=== PATIENT | male | born 1970 | race Caucasian/White ===

== ENCOUNTER 2016-12-09 21:12 | Emergency (ER) | payer OTHER ==
[~2016-12-09 21:12] MED LIST: ACETAMINOPHEN; AMOXIL500 M1 PO; COMBIVENT RESPIM4 GM INH; DILANTIN PO; FLEXERIL10 M1 PO; LEVAQUIN; LORTAB ELIXIR15 ML DOB; MEDROL DOSEPAK4 MG PO; MORGIDOX100 MG PO; NICOTINE TRANSD14 MG EXT; VOLTAREN50 MG PO; ZITHROMAX500 MG PO
[2016-12-10 02:02] LABS: BASOPHIL# 0.1 X10e3 (0-0.3); BASOPHIL% 1.5 % (0-2.5); EOSINOPHIL# 0.2 X10e3 (0-0.7); EOSINOPHIL% 3.1 % (0.0-7.0); HEMOGLOBIN 15.8 gm/dL (13.0-16.0); LYMPHOCYTE# 2.3 X10e3 (1.0-3.5); LYMPHOCYTE% 32.1 % (17.0-45.0); MEAN CELL VOLUME 94.8 FL (83-96); MEAN CORPUSCULAR HEMOGLOBIN 32.5 PG (28-34); MEAN CORPUSCULAR HGB CONC 34.3 g/dL (30-36); MEAN PLATELET VOLUME 6.8 FL (6.5-11.5); MONOCYTE# 0.4 X10e3 (0-1.0); MONOCYTE% 5.4 % (3.0-12.0); NEUTROPHIL# 4.2 X10e3 (1.5-7.1); NEUTROPHIL% 57.9 % (40-75); PLATELET COUNT 357 X10e3 (140-420); RED BLOOD COUNT 4.86 X10e (3.90-5.60); RED CELL DISTRIBUTION WIDTH 13.9 % (11.0-15.5); WHITE BLOOD COUNT 7.2 X10e3 (4.0-10.5)
[2016-12-10 02:08] LABS: DIFF IND NO
[2016-12-10 02:18] LABS: INR 0.9; PARTIAL THROMBOPLASTIN TIME 27.3 SECONDS (23.5-31.3); PROTHROMBIN TIME (PATIENT) 9.6 SECONDS (9.6-11.5)
[2016-12-10 02:51] LABS: ALBUMIN SERUM 5.2 g/dL (3.5-5.0); BILIRUBIN, DIRECT 0.1 mg/dL (0.0-0.2); BILIRUBIN,INDIRECT 0.5 mg/dL (0.0-0.9); BILIRUBIN,TOTAL 0.6 mg/dL (0.2-2.0); BUN/CREATININE RATIO 15.71; CALCIUM SERUM 9.1 mg/dL (8.4-10.2); CREATININE SERUM 0.7 mg/dL (0.6-1.4); GLOM FILT RATE Estimated 114.8 mL/min (>60); POTASSIUM 4.1 mmol/L (3.5-5.1); PROTEIN TOTAL SERUM 8.5 g/dL (6.0-8.3)
== END 2016-12-10 04:55 | disposition home or self-care (01) ==
LOC: CED 21:12
PROVIDERS: Emergency Medicine
DX: I99.8 Other disorder of circulatory system (principal); M79.671 Pain in right foot; J44.9 Chronic obstructive pulmonary disease, unspecified; F10.129 Alcohol abuse with intoxication, unspecified; G40.909 Epilepsy, unspecified, not intractable, without status epilepticus; Z79.899 Other long term (current) drug therapy; F17.200 Nicotine dependence, unspecified, uncomplicated
CPT/HCPCS: 36415; 80048; 80076; 85025; 85610; 85730; 96360; 99284; G0480

== ENCOUNTER 2017-01-02 10:40 | Emergency (ER) | payer OTHER ==
--- NOTE | ~2017-01-02 | US85 ---
[facility] A Service of [facility] & [facility] RADIOLOGY TEXT RESULTS PATIENT: SUSY REES LOCATION: [facility] : 74 UNIT #: [id number] AGE: [address]: Giovanni Ibarra MD SEX: M ORDER DR: [id number] [facility] [address] [place], [place] [address] [id number] E MR#: [id number] Acc #: [id number] NAME: SUSY REES : 1970 SEX: M STUDY DATE/TIME: 01/02/2017 12:36 UNIT: [facility] ROOM: STUDY DESCRIPTION: LE [employer] Attending Physician: Giovanni Ibarra M.D. Ordering Physician: Giovanni Ibarra M.D. Primary Care Physician: Alen Moore MEDICAL IMAGING REPORT This report is preliminary unless electronic signature is present EXAM Right extremity venous ultrasound 01/02/2017 HISTORY Pain for 5 days. TECHNIQUE Venous ultrasound examination of the right lower extremity was performed using grayscale, spectral Doppler and color flow Doppler imaging. FINDINGS The examination is negative. There is no evidence of right lower extremity deep venous thrombus from the groin to the lower calf. Visualized greater saphenous vein is also patent. IMPRESSION Negative examination. No evidence of right lower extremity deep venous thrombosis. Dictated by... Peterson Lancaster M.D. THIS IS AN ELECTRONICALLY VERIFIED REPORT Peterson Lancaster M.D. at 01/03/2017 5:40 PM MATTEOK/kota TD: 01/02/2017 19:34 JOB #: [id number] MEDICAL IMAGING REPORT Page 1 of 1 COPY
--- NOTE | ~2017-01-02 | US83 ---
[facility] A Service of [facility] & [facility] RADIOLOGY TEXT RESULTS PATIENT: SUSY REES LOCATION: [facility] : 74 UNIT #: [id number] AGE: [address]: Giovanni Ibarra MD SEX: M ORDER DR: [id number] [facility] [address] [place], [place] [address] [id number] E MR#: [id number] Acc #: [id number] NAME: SUSY REES : 1970 SEX: M STUDY DATE/TIME: 01/02/2017 12:20 UNIT: [facility] ROOM: STUDY DESCRIPTION: US LE [employer] Attending Physician: Giovanni Ibarra M.D. Ordering Physician: Giovanni Ibarra M.D. Primary Care Physician: Alen Moore MEDICAL IMAGING REPORT This report is preliminary unless electronic signature is present EXAM Right lower extremity arterial Doppler INDICATION Numbness, pain and tingling in the calf for 5 days. TECHNIQUE Hernandez-scale, color Doppler and spectral Doppler waveform analysis was performed through the right lower extremity. FINDINGS Velocities overall throughout the right lower extremity appear elevated. This is of uncertain clinical significance. This is with the exception of the peroneal artery which has a velocity of 11 cm/sec and shows severe amplitude reduction and elongation of the waveform. Remainder of the waveforms throughout the right lower extremity appear to be monophasic. This would be suggestive of aoeb-uw-tvkyzsyx disease. IMPRESSION Velocities appear elevated throughout much of the right lower extremity with the exception of the patient's peroneal artery. Clinical significance is uncertain. It may be artifactual and related to technique. 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 Overall, waveforms throughout the right lower extremity are essentially monophasic which would suggest dxbh-gz-xpijjpiq disease throughout the right lower extremity. Correlation with ankle-brachial indices is suggested. Further evaluation with CT angiography of the abdomen and pelvis with bilateral lower extremity runoff would also allow for better evaluation. STAT * RESULT [facility] A Service of [facility] RADIOLOGY TEXT RESULTS PATIENT: SUSY REES LOCATION: [facility] : 74 UNIT #: [id number] AGE: [address]: Giovanni Ibarra MD SEX: M ORDER DR: Dictated by... Sejal Hairston M.D. THIS IS AN ELECTRONICALLY VERIFIED REPORT Sejal Hairston M.D. at 01/02/2017 3:52 PM HONEY/xuan TD: 01/02/2017 13:49 JOB #: [id number] MEDICAL IMAGING REPORT Page 1 of 1 COPY
--- NOTE | ~2017-01-02 | CR127 ---
[facility] A Service of [facility] RADIOLOGY TEXT RESULTS PATIENT: SUSY REES LOCATION: [facility] : 74 UNIT #: [id number] AGE: [address]: Giovanni Ibarra MD SEX: M ORDER DR: [id number] [place] [id number] [facility] [place], [place] [address] [id number] E MR#: [id number] Acc #: [id number] NAME: SUSY REES : 1970 SEX: M STUDY DATE/TIME: 01/02/2017 11:25 UNIT: [facility] ROOM: STUDY DESCRIPTION: CR Foot Complete Min 3 View Rt Attending Physician: Giovanni Ibarra M.D. Ordering Physician: Giovanni Ibarra M.D. Primary Care Physician: Alen Moore MEDICAL IMAGING REPORT This report is preliminary unless electronic signature is present EXAM Right foot 01/02/2017 HISTORY 46-year-old male with right foot pain and swelling for 5 days. COMPARISON Right foot 12/20/2016, 12/05/2016. FINDINGS 3 views of the right foot again demonstrates a minimal to nondisplaced articular fracture involving the medial head of the first proximal phalanx. This is unchanged from the patient's prior examinations dating from 12/05/2016. No new fracture or dislocation identified. There is a suspected soft tissue laceration or ulceration along the distal medial aspect of the fourth toe. This is also unchanged from prior exam. No significant ankle effusion. IMPRESSION 1. No significant change in oblique articular fracture involving the medial head of the first proximal phalanx since 12/05/2016. No new fracture or dislocation identified. 2. Probable soft tissue laceration or ulceration along the distal medial aspect of the fourth toe, unchanged from prior exam. Dictated by... Chu Gilbert M.D. THIS IS AN ELECTRONICALLY VERIFIED REPORT Chu Gilbert M.D. at 01/02/2017 6:29 PM JKB/pcl [facility] A Service of [facility] RADIOLOGY TEXT RESULTS PATIENT: SUSY REES LOCATION: [facility] : 74 UNIT #: [id number] AGE: [address]: Giovanni Ibarra MD SEX: M ORDER DR: TD: 01/02/2017 17:41 JOB #: [id number] MEDICAL IMAGING REPORT Page 1 of 1 COPY
[2017-01-02 11:51] LABS: BASOPHIL# 0.1 X10e3 (0-0.3); BASOPHIL% 1.6 % (0-2.5); EOSINOPHIL# 0.3 X10e3 (0-0.7); EOSINOPHIL% 4.9 % (0.0-7.0); HEMATOCRIT 43.2 % (38.0-50.0); HEMOGLOBIN 14.4 gm/dL (13.0-16.0); LYMPHOCYTE# 1.5 X10e3 (1.0-3.5); LYMPHOCYTE% 27.6 % (17.0-45.0); MEAN CORPUSCULAR HEMOGLOBIN 31.7 PG (28-34); MEAN CORPUSCULAR HGB CONC 33.4 g/dL (30-36); MEAN PLATELET VOLUME 7.3 FL (6.5-11.5); MONOCYTE# 0.4 X10e3 (0-1.0); MONOCYTE% 6.6 % (3.0-12.0); NEUTROPHIL# 3.2 X10e3 (1.5-7.1); NEUTROPHIL% 59.3 % (40-75); PLATELET COUNT 405 X10e3 (140-420); RED BLOOD COUNT 4.55 X10e (3.90-5.60); RED CELL DISTRIBUTION WIDTH 13.4 % (11.0-15.5); WHITE BLOOD COUNT 5.4 X10e3 (4.0-10.5)
[2017-01-02 11:53] LABS: DIFF IND NO
[2017-01-02 12:02] LABS: INR 0.9; PARTIAL THROMBOPLASTIN TIME 27.4 SECONDS (23.5-31.3)
[2017-01-02 12:12] LABS: BUN/CREATININE RATIO 14.28; CALCIUM SERUM 9.1 mg/dL (8.4-10.2); CREATININE SERUM 0.7 mg/dL (0.6-1.4); GLOM FILT RATE Estimated 114.8 mL/min (>60); POTASSIUM 4.5 mmol/L (3.5-5.1)
== END 2017-01-02 13:35 | disposition home or self-care (01) ==
LOC: CED 10:40
PROVIDERS: Emergency Medicine
DX: S92.411A Displaced fracture of proximal phalanx of right great toe, initial encounter for closed fracture (principal); G40.909 Epilepsy, unspecified, not intractable, without status epilepticus; Z90.49 Acquired absence of other specified parts of digestive tract; F17.200 Nicotine dependence, unspecified, uncomplicated; Z79.899 Other long term (current) drug therapy; X58.XXXA Exposure to other specified factors, initial encounter; Y92.9 Unspecified place or not applicable
CPT/HCPCS: 36415; 73630; 80048; 85025; 85610; 85652; 85730; 86140; 93926; 93971; 99284; G0480